=== PATIENT | female | born 1985 | race Caucasian/White ===

== ENCOUNTER 2020-11-04 20:48 | Emergency (ER) | payer OTHER ==
--- NOTE | 2020-11-04 22:15 | EDM.PDOC ---
ED HPI GENERAL MEDICAL PROBLEM - General Chief Complaint: ENT Problem Stated Complaint: DIFFICULTY SWOLLING,CHEST AND BACK PAIN Time Seen by Provider: 11/04/20 22:00 Source of Information: Reports: Patient, Family History Limitations: Reports: No Limitations - History of Present Illness INITIAL COMMENTS - FREE TEXT/NARRATIVE: 34-year-old female with odynophagia for the last several days, especially lower towards the stomach. It even hurts to drink water but she does not have obstruction, everything is going down. She has been on Augmentin all summer for an unrelenting "sinus infection" and her mother was just diagnosed with candidiasis esophagitis. Now that she thinks she has it. She just finished antibiotics 2 days ago but wants to be checked for strep as well. No fevers or chills no shortness of breath no cough no nausea or vomiting. Onset: Gradual Duration: Day(s): (2 to 3 days of painful swallowing) Associated Symptoms: Reports: Other (Chronic sinus infection). 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 heart rate 152 - Infectious Disease History Infectious Disease History: Reports: Chicken Pox - Past Surgical History HEENT Surgical History: Reports: Naso-Sinus Surgery, Tonsillectomy Social & Family History - Family History Family Medical History: Unobtainable - Tobacco Use Tobacco Use Status *Q: Never Tobacco User - Caffeine Use Caffeine Use: Reports: Coffee - Recreational Drug Use Recreational Drug Use: No ED ROS ENT - Review of Systems Review Of Systems: See Below Constitutional: Denies: Fever, Chills, Malaise HEENT: Reports: Throat Pain, Other (Painful swallowing) Respiratory: Denies: Shortness of Breath Cardiovascular: Reports: Chest Pain (Substernal pain when swallowing) GI/Abdominal: Reports: Abdominal Pain (Upper abdominal discomfort) Skin: Reports: No Symptoms Neurological: Denies: Headache ED EXAM, ENT - Physical Exam Exam: See Below Exam Limited By: No Limitations General Appearance: Alert, No Apparent Distress, Other (Vitals are stable, normal) Eye Exam: Bilateral Eye: Normal Inspection Mouth/Throat: Other (Tonsils are absent, there is a few erythematous patches on the soft palate that are tender but no white patches. No adenopathy) Head: Atraumatic Respiratory/Chest: No Respiratory Distress, Lungs Clear Cardiovascular: Regular Rate, Rhythm GI/Abdominal: Other (Mild discomfort with palpation of the epigastric area but no guarding) Course - Vital Signs Last Recorded V/S: Last Vital Signs Temp 97.3 F 11/04/20 21:28 Pulse 65 11/04/20 21:28 Resp 16 11/04/20 21:28 BP Pulse Ox 98 11/04/20 21:28 - Orders/Labs/Meds Orders: Active Orders 24 hr Category Date Time Status CULTURE STREP A CONFIRMATION [RM] Routine Lab 11/04/20 22:19 Results STREP SCRN A RAPID W CULT CONF [RM] Routine Lab 11/04/20 22:19 Results Meds: Medications Discontinued Medications Generic Name Dose Route Start Last Admin Trade Name Nolvia PRN Reason Stop Dose Admin Clotrimazole 10 mg 11/04/20 22:42 11/04/20 22:53 Clotrimazole 10 Mg Shelly PO 11/04/20 22:43 10 mg ONETIME ONE Administration - Re-Assessments/Exams Free Text/Narrative Re-Assessment/Exam: 11/04/20 22:15 Rapid strep was obtained, if this is negative patient will be put on Mycelex lozenges that she may have candidiasis from her chronic Augmentin. 11/04/20 22:48 Strep is negative, she was given a Mycelex shelly to suck on tonight and a prescription for 20 additional doses. Departure - Departure Time of Disposition: 22:59 Disposition: Home, Self-Care 01 Clinical Impression: Esophagitis - Discharge Information Instructions: Esophagitis Referrals: PCP,None [Primary Care Provider] - Forms: ED Department Discharge Care Plan Goals: Suck on a medication 4 times a day for the next several days, and recheck in 2 to 3 days if not improving. Sepsis Event Note (ED) - Focused Exam Vital Signs: Vital Signs Temp Pulse Resp Pulse Ox 11/04/20 21:28 97.3 F 65 16 98 - My Orders Last 24 Hours: My Active Orders 11/04/20 22:19 CULTURE STREP A CONFIRMATION [RM] Routine STREP SCRN A RAPID W CULT CONF [RM] Routine - Assessment/Plan Last 24 Hours: My Active Orders 11/04/20 22:19 CULTURE STREP A CONFIRMATION [RM] Routine STREP SCRN A RAPID W CULT CONF [RM] Routine
[2020-11-04] MEDS ORDERED: Clotrimazole 10 MG Troche PO ONE (22:42)
== END 2020-11-04 22:55 | disposition home or self-care (01) ==
LOC: JP.ED 20:48
DX: K20.90 Esophagitis, unspecified without bleeding (principal); Z88.1 Allergy status to other antibiotic agents; Z88.5 Allergy status to narcotic agent; Z88.7 Allergy status to serum and vaccine
CPT/HCPCS: 87081; 87880; 99284; A9270